=== PATIENT | female | born 1990 | race Caucasian/White ===

== ENCOUNTER 2018-09-07 10:54 | Emergency (ER) | payer OTHER ==
[2018-09-07 11:08] VITALS: BP 117/75; PULSE 70; RESP 16; TEMP 98.2
[2018-09-07] MEDS ORDERED: AMOXIC-POT CLAV 875MG STARTER 2 EACH TABLET PO STA (12:38)
--- NOTE | 2018-09-07 12:39 | ED ---
General Adult HPI - General Chief complaint: Eye Problems Stated complaint: Eye pain/side of face swollen Time Seen by Provider: 09/07/18 11:36 Source: patient, RN notes reviewed Mode of arrival: ambulatory Limitations: no limitations - History of Present Illness Initial comments: 27-year-old female presents to the emergency department for a chief complaint of edema and erythema noted to the left lower eyelid x 3 days. Patient states she believes this started as a stye however is worsening instead of improving. Patient states it is now more swollen than it has been the past 2 days. She does admit to pain with palpation to the lower eyelid but denies any pain within the eye. She denies any pain with movement of the eye. Patient denies fevers or chills. Patient has tried warm compresses twice yesterday without relief as well as stye cream. Patient states she has had a pseudomonal infection in the left eye in the past and is legally blind in that eye so wanted to get antibiotics before it worsens.Patient has no other complaints at this time including shortness of breath, chest pain, abdominal pain, nausea or vomiting, headache, or visual changes. - Related Data Previous Rx's Medication Instructions Recorded Amoxicillin/Potassium Clav 1 tab PO Q12HR #20 tab 09/07/18 [Augmentin 875-125 Tablet] Allergies Allergy/AdvReac Type Severity Reaction Status Date / Time No Known Allergies Allergy Verified 09/07/18 11:08 Review of Systems ROS Statement: Those systems with pertinent positive or pertinent negative responses have been documented in the HPI. ROS Other: All systems not noted in ROS Statement are negative. Past Medical History Additional Past Medical History / Comment(s): Pseudamonas in left eye as a child History of Any Multi-Drug Resistant Organisms: None Reported Past Surgical History: Tonsillectomy Past Psychological History: No Psychological Hx Reported Smoking Status: Never smoker Past Alcohol Use History: None Reported Past Drug Use History: None Reported General Exam Limitations: no limitations General appearance: alert, in no apparent distress Head exam: Present: atraumatic, normocephalic, normal inspection Eye exam: Present: normal appearance, PERRL, EOMI (No pain with movement of the left eye, no pain of the conjunctiva.), periorbital swelling (minimal edema noted in the left lower eyelide with mild localized erythema. No evidence of a cellulitic infection.). Absent: scleral icterus, conjunctival injection (No erythema noted to the conjunctiva of the left eye) ENT exam: Present: normal exam, normal oropharynx, mucous membranes moist, normal external ear exam Neck exam: Present: normal inspection, full ROM. Absent: tenderness, meningismus, lymphadenopathy Respiratory exam: Present: normal lung sounds bilaterally. Absent: respiratory distress, wheezes, rales, rhonchi, stridor Cardiovascular Exam: Present: regular rate, normal rhythm, normal heart sounds. Absent: systolic murmur, diastolic murmur, rubs, gallop, clicks Neurological exam: Present: alert, oriented X3, CN II-XII intact Psychiatric exam: Present: normal affect, normal mood Course Vital Signs 09/07/18 11:06 Temperature 98.2 F Pulse Rate 70 Respiratory 16 Rate Blood Pressure 117/75 O2 Sat by Pulse 99 Oximetry Medical Decision Making - Medical Decision Making 27-year-old female presents to the emergency department for a chief complaint of left periOrbital edema 3 days. Patient states this started as a stye that has worsened. On exam patient does have minimal localized edema noted to the left lower eyelid with localized erythema. No spreading redness or evidence of a cellulitic infection. No swelling or redness noted to the upper or lower eyelid. No erythema to the conjunctiva. No pain with movement of the eye. Patient was given Augmentin to cover for possible bacterial infection. No concern for periorbital cellulitis or orbital cellulitis at this time. However if symptoms worsen patient will return here which she agrees to do. She will follow up with ophthalmology tomorrow. Disposition Clinical Impression: Hordeolum externum (stye) Disposition: HOME SELF-CARE Condition: Good Instructions (If sedation given, give patient instructions): Aakash (ED) Additional Instructions: Please take antibiotic as directed. Do warm compresses multiple times per day. Please follow-up with primary care and ophthalmology in 1-2 days. If symptoms are worsening return here to the emergency department. Prescriptions: Amoxicillin/Potassium Clav [Augmentin 875-125 Tablet] 1 tab PO Q12HR #20 tab Is patient prescribed a controlled substance at d/c from ED?: No Referrals: Akiko Antonio MD [STAFF PHYSICIAN] - 1-2 days Radha Patel MD [REFERRING] - 1-2 days Time of Disposition: 12:35
== END 2018-09-07 13:00 | disposition home or self-care (01) ==
LOC: EC 10:54
DX: H00.015 Hordeolum externum left lower eyelid (principal)
CPT/HCPCS: 99283

== ENCOUNTER 2019-06-15 09:17 | Emergency (ER) | payer OTHER ==
[2019-06-15 09:24] VITALS: TEMP 97.4
[2019-06-15] MEDS ORDERED: KETOROLAC 60 MG/2 ML VIAL IM STA (09:55)
[2019-06-15] MEDS ORDERED: DIAZEPAM 5 MG TAB PO STA (09:55)
--- NOTE | 2019-06-15 10:09 | ED ---
Back Pain HPI - General Chief Complaint: Back Pain/Injury Stated Complaint: Back injury Time Seen by Provider: 06/15/19 09:25 Source: patient Limitations: no limitations - History of Present Illness Initial Comments: 28-year-old female presents emergency room for evaluation of back pain x 3 days. Patient states she's history dependent degenerative disc disease as well as previous disc herniations. Patient states she has no current primary care provider or orthopedic physician who manages her chronic back pain. Patient states she is back pain every day however since Saturday when she bent over to grab a pop from the cover she had pain in the low back that increased with ambulation or movement of the legs. Patient states the pain is so severe that she does not want to go from sitting to standing positions. However patient states if she is helped into a standing position and she has full strength in her legs and is able to ambulate. Patient denies any loss sensation of the lower extremities urinary retention loss of bowel bladder control, vaginal numbness, fevers, IVDU or history of cancer. Remaining review of systems negative. Patient presents today to emergency department due to persistence of symptoms. - Related Data Previous Rx's Medication Instructions Recorded Amoxicillin/Potassium Clav 1 tab PO Q12HR #20 tab 09/07/18 [Augmentin 875-125 Tablet] Allergies Allergy/AdvReac Type Severity Reaction Status Date / Time No Known Allergies Allergy Verified 06/15/19 09:20 Review of Systems ROS Statement: Those systems with pertinent positive or pertinent negative responses have been documented in the HPI. ROS Other: All systems not noted in ROS Statement are negative. Past Medical History Past Medical History: Cancer, Seizure Disorder Additional Past Medical History / Comment(s): Pseudamonas in left eye as a child, "the start of breast and ovarian CA" History of Any Multi-Drug Resistant Organisms: None Reported Past Surgical History: Orthopedic Surgery, Tonsillectomy Additional Past Surgical History / Comment(s): laproscopic adbdominal, R arm Past Psychological History: Anxiety Smoking Status: Never smoker Past Alcohol Use History: Rare Past Drug Use History: None Reported General Exam - General Exam Comments Initial Comments: General: The patient is awake and alert, in no distress Eye: +3 mm pupils are equal, round and reactive to light, extra-ocular movements are intact. No nystagmus. There is normal conjunctiva bilaterally. No signs of icterus. Cardiovascular: There is a regular rate and rhythm. No murmur, rub or gallop is appreciated. Respiratory: Lungs are clear to auscultation, respirations are non-labored, breath sounds are equal. No wheezes, stridor, rales, or rhonchi. Gastrointestinal: Soft, non-distended, non-tender abdomen without masses or org anomegaly noted. There is no rebound or guarding present. Musculoskeletal: normal genitalia inspection of thecervical thoracic and lumbar spine. No lesions noted. No bruising. No swelling.minimal midline tenderness to patient of the thoracic and lumbar spine. Patient is mostly paravertebral tenderness with muscle spasm. Patient is positive straight leg raise bilater ally however full sensation as well as strength preserved in the lower extremity bilaterally patient is able to ambulate and stand. Normal rectal tone. no mild clonus or fasciculations noted.Radial and DP pulses equal bilaterally 2+. Neurological: A&O x 3. CN II-XII intact grossly, There are no obvious motor or sensory deficits. Coordination appears grossly intact. Speech is normal. Skin: Skin is warm and dry and no rashes or lesions are noted. Psychiatric: Cooperative, appropriate mood & affect, normal judgment. Limitations: no limitations Course Vital Signs 06/15/19 09:20 Temperature 97.4 F L Pulse Rate 96 Respiratory 18 Rate Blood Pressure 119/82 O2 Sat by Pulse 100 Oximetry Medical Decision Making - Medical Decision Making 28-year-old female presents emergency department for chief complaint of back pain. History of chronic back pain. Exacerbation since bending over on Saturday. No falls. No focal neurological deficits. No weakness appreciated. Normal rectal tone and sensation. No concerning historical features. Patient appears well. Plain films were obtained to rule out compression fracture. Patient is to follow-up with primary care provider and obtain outpatient MRI. Patient provided referral for outpatient orthopedics senior regulatory affairs specialist. Return parameters were discussed at length patient verbalizes understanding Disposition Clinical Impression: Acute exacerbation of chronic low back pain Disposition: HOME SELF-CARE Condition: Good Instructions (If sedation given, give patient instructions): Acute Low Back Pain (ED) Additional Instructions: Please use medication as discussed. Please follow-up with family doctor in the next 2 days, recommend outpatient orthopedic follow-up. Please return to emergency room if the symptoms increase or worsen or for any other concerns. Is patient prescribed a controlled substance at d/c from ED?: No Referrals: None,Stated [Primary Care Provider] - 1-2 days Pavithra Bowser DO [Doctor of Osteopathic Medicine] - 1-2 days [facility] [NON-STAFF] - 1-2 days Time of Disposition: 10:21
--- NOTE | 2019-06-15 10:16 | XR ---
EXAMINATION TYPE: XR lumbar spine 2 or 3V DATE OF EXAM: 06/15/2019 CLINICAL HISTORY: Back pain with left-sided radiculopathy. History of disc herniation. TECHNIQUE: Frontal and lateral images of the lumbar spine are obtained. COMPARISON: None FINDINGS: Or a mild levoscoliosis of the lumbar spine. Mild multilevel facet arthropathy. There are 5 lumbar type vertebral bodies identified. The lumbar spine shows satisfactory alignment without mike dence of acute fracture or dislocation. Vertebral body heights and disk space heights are within norm al limits. The oblique images appear within normal limits. The overlying soft tissue appears unrem arkable. IMPRESSION: No acute fracture or malalignment is seen in the lumbar spine. Note that disc herniation s are not seen on x-ray on this patient with known prior disc herniation. MRI is best to characterize and evaluate for disc herniations.
[2019-06-15] MEDS ORDERED: ACET/COD 300 MG/30 MG STARTER PACK 6 TAB BTL PO STA (10:18)
[2019-06-15 10:31] VITALS: BP 120/80; PULSE 88; RESP 16
== END 2019-06-15 10:28 | disposition home or self-care (01) ==
LOC: EC 09:17
DX: G89.29 Other chronic pain (principal); M54.5 Low back pain; M62.838 Other muscle spasm; Z85.43 Personal history of malignant neoplasm of ovary; Z85.3 Personal history of malignant neoplasm of breast
CPT/HCPCS: 72100; 96372; 99283; J1885